=== PATIENT | male | born 1975 | race Two or more races ===

== ENCOUNTER 2020-08-18 12:30 | Emergency (ER) | payer OTHER ==
[~2020-08-18] VITALS: Ht 182.9 cm; Wt 72.6 kg
[2020-08-18] MEDS ORDERED: LOSARTAN POTASS50 MG (13:02)
[2020-08-18] MEDS ORDERED: LEVOTHYROXINE25 MC2 (13:02)
[2020-08-18] MEDS ORDERED: CIPRO500 MG PO (18:25)
[2020-08-18] MEDS ORDERED: PEPCID AC20 MG PO (18:25)
[2020-08-18] MEDS ORDERED: INTESTINEX680 M1 PO (18:25)
[2020-08-18] MEDS ORDERED: FLAGYL500MG PO (18:25)
== END 2020-08-18 19:07 | disposition home or self-care (01) ==
LOC: ER 12:30
DX: R10.32 Left lower quadrant pain (principal); Z20.822 Contact with and (suspected) exposure to COVID-19

== ENCOUNTER 2020-09-19 11:00 | Inpatient (IN) | payer OTHER ==
[~2020-09-19] VITALS: Ht 182.9 cm; Wt 70.3 kg
[~2020-09-19 11:00] MED LIST: CIPRO500 MG PO; FLAGYL500MG PO; INTESTINEX680 M1 PO; LEVOTHYROXINE25 MC2; LOSARTAN POTASS50 MG; PEPCID AC20 MG PO
[2020-09-26] MEDS ORDERED: LEVOTHYROXINE25 MC1 (09:20)
[2020-09-26] MEDS ORDERED: ACID CONTROLLER20 MG (09:21)
[2020-09-26] MEDS ORDERED: INTESTINEX680 M1 (09:21)
[2020-09-30] MEDS ORDERED: OMEPRAZOLE20 MG PO (13:34)
[2020-09-30] MEDS ORDERED: PERCOCET 5-3251 EACH PO (13:34)
== END 2020-09-30 14:25 | disposition home or self-care (01) | DRG 329 ==
LOC: O/R 09-26 07:00 → SURH 09-26 08:15
PROVIDERS: ADMIT Surgery; ATTEND Surgery
PROC: 0DBP4ZZ Excision of Rectum, Percutaneous Endoscopic Approach (ICD-10-PCS; 2020-09-26)
PROC: 0W9J40Z Drainage of Pelvic Cavity with Drainage Device, Percutaneous Endoscopic Approach (ICD-10-PCS; 2020-09-26)
PROC: 0DBN4ZZ Excision of Sigmoid Colon, Percutaneous Endoscopic Approach (ICD-10-PCS; principal; 2020-09-26 08:15)
DX: K57.20 Diverticulitis of large intestine with perforation and abscess without bleeding (principal); K65.8 Other peritonitis; N32.1 Vesicointestinal fistula; K59.09 Other constipation; K64.2 Third degree hemorrhoids; I11.9 Hypertensive heart disease without heart failure; E78.5 Hyperlipidemia, unspecified

== ENCOUNTER 2021-06-06 11:08 | Emergency (ER) | payer OTHER ==
[~2021-06-06] VITALS: Ht 182.9 cm; Wt 83.9 kg
[~2021-06-06 11:08] MED LIST changes: +ACID CONTROLLER20 MG; +INTESTINEX680 M1; +LEVOTHYROXINE25 MC1; +OMEPRAZOLE20 MG PO; +PERCOCET 5-3251 EACH PO
== END 2021-06-06 13:33 | disposition home or self-care (01) ==
LOC: ER 11:08
DX: K29.00 Acute gastritis without bleeding (principal)